=== PATIENT | female | born 1995 | race Caucasian/White ===

== ENCOUNTER 2018-09-18 15:20 | Emergency (ER) | payer MEDICAID ==
[~2018-09-18] VITALS: Ht 160 cm; Wt 63.5 kg
[2018-09-18 15:24] VITALS: Ht 160 cm; Wt 63.5 kg
[2018-09-18 16:08] LABS: BASOPHIL % 1.3 % (0-2); PLATELET COUNT 286 x10^3mcL (130-400); RED CELL DISTRIBUTION WIDTH 13.9 % (11.5-14.5)
[2018-09-18 16:14] LABS: CALCIUM 9.8 mg/dL (8.5-10.1); CARBON DIOXIDE 26.1 mmol/L (21-32); CHLORIDE SERUM 102 mmol/L (98-107); CREATININE SERUM 0.8 mg/dL (0.6-1.0); GFR1 > 60 mL/min; GLUCOSE SERUM 109 mg/dL (74-106); SODIUM SERUM 138 mmol/L (136-145)
[2018-09-18 16:18] LABS: ALBUMIN 4.2 g/dL (3.4-5.0); ALKALINE PHOSPHATASE 62 U/L (46-116); ALT/SGPT 23 U/L (14-59); AST/SGOT 6 U/L (15-37); BILIRUBIN TOTAL 0.63 mg/dL (0.20-1.00); LIPASE 97 IU/L (73-393)
[2018-09-18 16:20] LABS: TOTAL PROTEIN, SERUM 8.7 g/dL (6.4-8.2)
[2018-09-18 18:31] VITALS: BP 120/86
== END 2018-09-18 18:31 | disposition home or self-care (01) ==
LOC: ED 15:20
PROVIDERS: Emergency Medicine
DX: N23 Unspecified renal colic (principal)
CPT/HCPCS: 36415; J1885

== ENCOUNTER 2019-01-28 16:24 | Inpatient (IN) | payer SELFPAY ==
[~2019-01-28] VITALS: Ht 160 cm; Wt 61.2 kg
[2019-01-28 16:25] VITALS: Ht 160 cm; Wt 61.2 kg
--- NOTE | 2019-01-28 16:52 | NUR ---
PT PRESENTS TO ED WITH C/O ACUTE ABDOMINAL PAIN STARTING 5HRS CLINICIAN ONCOLOGY. PT STS PAIN IS SHARP AND CONSTANT. UPON ARRIVAL PT WAS DIAPHORETIC, PALE, AND TACHYPNEIC. PT REPORTS HAVING 2 EPISODES OF VOMITING CLINICIAN ONCOLOGY. PT STS PAIN IS IN MID LOWER QUADRANT AREA AND IN PELVIC AREA. PT STS PAIN ALSO RADIATES TO BACK. PT DENIES FEVER. PT PUT ON FULL CM, AAOX4, AND TACHYPNEIC DUE TO PAIN. PT MOTHER AT BEDSIDE. WILL CONTINUE TO MONITOR.
[2019-01-28 17:19] LABS: PLATELET COUNT 193 x10^3mcL (130-400); RED CELL DISTRIBUTION WIDTH 13.5 % (11.5-14.5)
[2019-01-28 17:20] LABS: BASOPHIL % 0 % (0-2)
[2019-01-28 17:33] LABS: CALCIUM 8.8 mg/dL (8.5-10.1); CARBON DIOXIDE 25.6 mmol/L (21-32); CREATININE SERUM 1.3 mg/dL (0.6-1.0); POTASSIUM SERUM 3.3 mmol/L (3.5-5.1)
[2019-01-28 17:37] LABS: ALBUMIN 3.9 g/dL (3.4-5.0); BILIRUBIN TOTAL 1.7 mg/dL (0.20-1.00); TOTAL PROTEIN, SERUM 7.7 g/dL (6.4-8.2)
--- NOTE | 2019-01-28 17:42 | NUR ---
PT STS PAIN HAS GONE FROM 02/05 TO 10/06. PT STS SHE IS STILL UNABLE TO GIVE URINE FOR SAMPLE. DR.BRACKEN RYDER.
--- NOTE | 2019-01-28 18:42 | NUR ---
PT REPORTS PAIN IS NOW 3/1O. PT TAKEN OFF FLOOR TO GET ULTRA SOUND.
--- NOTE | 2019-01-28 19:10 | NUR ---
REPORT GIVEN TO SMITH HENDRICKSON TO ASSUME CARE OF PT.
--- NOTE | 2019-01-28 20:34 | NUR ---
PT OFF FLOOR FOR CT SCAN.
--- NOTE | 2019-01-28 21:07 | NUR ---
PT RESTING IN A POSITION OF COMFORT, AOX4, RESP EVEN AND UNLABORED, NO ACUTE DISTRESS NOTED. PT FRIEND AT BEDSIDE.
--- NOTE | 2019-01-28 21:50 | NUR ---
DR NEGRETE AWARE OF PT BECOMING HYPOTENSIVE. AWARE THAT INITIAL LACTIC ACID WAS NOT ORDERED. WAITING FOR NEW ORDERS.
--- NOTE | 2019-01-28 22:05 | NUR ---
RECEIVED REPORT FROM EMEKA MTZ. PT MOVED TO ROOM 2A AT THIS TIME VIA [facility]. PT RESTING ON GURNEY IN NAD, BREATHING EVEN AND UNLABORED. PT A&0X4, SPEAKING FULL CLEAR SENTENCES. CM AND [address] FAMILY AT BEDSIDE. IV FLUIDS RUNNING AT ORDERED RATE. WILL CONTINUE TO MONITOR.
--- NOTE | 2019-01-28 22:05 | NUR ---
PT MOVED FROM ED BED 12 TO 2B FOR CLOSER MONITORING. PT REPORT GIVEN TO MIRTA MTZ TO ASSUME PT CARE.
--- NOTE | 2019-01-28 22:37 | NUR ---
SPOKE TO JOJO GLUE SPREADER, PER JOJO PT IS SCHEDULED BY SURGEON JESSICA FOR LAP APPENDECTOMY WITH POSSIBLE OPEN APPENDECTOMY AT 10 AM BUT WILL WAIT TO SEE PTS WHITE BLOOD COUNT IN AM. PER JOJO, MAKE SURE IF PT IS ENDORSED THAT ONCOMING RN IS AWARE.
--- NOTE | 2019-01-28 22:50 | NUR ---
CALLED SURGEON MD LOPEZ. PER MD HUMMEL TO SEND PT TO TELE FLOOR BEFORE STARTING ZOSYN ANTIBIOTIC. PER MD LOPEZ TELE NURSE TO START ANTIBIOTICS AFTER FLAGYL IS FINISHED INFUSING.
--- NOTE | 2019-01-28 23:37 | NUR ---
CALLED REPORT TO NATALIE MTZ
--- NOTE | 2019-01-28 23:40 | NUR ---
PT AMBULATED TO RESTROOM WITH STEADY GAIT ACCOMPANIED BY FAMILY.
--- NOTE | 2019-01-28 23:50 | NUR ---
Total fluid resuscitation amount ordered for patient is 4000 mls. At time of admission/transfer to TELEMETRY , 4000 mls have infused. Last BP was 92/53 and SMITH PEÑA is aware. PT TRANSFERED AT THIS TIME VIA [facility] BY MYSELF AND [facility] EMT. PT A&0X4, SPEAKING FULL CLEAR SENTENCES. BREATHING EVEN AND UNLABORED. FLAGYL ENDORSED TO CASEY MTZ. PT REMAINS NPO AT THIS TIME AND CASEY RN AWARE. PT VERBALIZED UNDERSTANDING OF PLAN OF CARE. TRANSPORT CM IN PLACE. PT AMBULATED FROM [facility] TO BED WITH NO ASSISTANCE. PT HAS ALL BELONGINGS UPON TRANSFER. OKAY PER MD TO TRANSFER PT TO TELE.
--- NOTE | 2019-01-28 23:50 | NUR ---
RECEIVED PT VIA [employer] FROM E/D, ACCOMANIED BY RN AND TRANSPORTER. A/A/O X 4, CALM, COOPERATIVE. AMBULATORY, NO GAIT OR BALANCE IMPAIRMENT NOTED WHEN WALKING FROM GURNEY TO BED. ON TELE # 13, HR 1120, ST, DENIES CHEST PAIN OR DISCOMFORT AT THIS TIME. SCD BY BEDSIDE. NO ACUTE RESPIRATORY DISTRESS NOTED. ABD SOFT, FLAT, TENDERNESS UPON PALPATION TO RLQ (C/O INTERMITTENT, SHARP ABD PAIN 2/10, EXACERBATED BY WALKING AND TWISTING, RELIEVED BY PAIN MEDICATIONS AND REST), LAST BM 01/27/19, FORMED. IV SITE RAC 20G, CDI. ORIENTED PT TO ROOM, BED CONTROLS, CALL LIGHT SYSTEM. SIDE RAILS UP X 2, BED IN LOW POSITION. WILL ENDORSE TO SMITH AWAN.
[2019-01-29 00:48] VITALS: BP 95/51
--- NOTE | 2019-01-29 02:19 | NUR ---
HANGED ZOSYN X1 DOSE ORDERED BY DR LOPEZ SURGEON FROM ER.
--- NOTE | 2019-01-29 03:48 | NUR ---
ASLEEP NO S/SX OF PAIN OR DISCOMFORTS NO DISTRESS, REMAINED NPO, IVF INFUSING WELL, VISUAL CHECKED AT INTERVALS.
[2019-01-29 05:38] VITALS: BP 97/54
--- NOTE | 2019-01-29 06:32 | NUR ---
DR MIRANDA INFORMED OF K+ LEVEL 3.3 AWAITING FOR ORDERS.
[2019-01-29 06:36] LABS: ALKALINE PHOSPHATASE 40 U/L (46-116); ALT/SGPT 36 U/L (14-59); AST/SGOT 30 U/L (15-37); CALCIUM 7.2 mg/dL (8.5-10.1); CHLORIDE SERUM 108 mmol/L (98-107); GFR1 > 60 mL/min; GLUCOSE SERUM 114 mg/dL (74-106); PLATELET COUNT 160 x10^3mcL (130-400); POTASSIUM SERUM 3.6 mmol/L (3.5-5.1); RED CELL DISTRIBUTION WIDTH 13.4 % (11.5-14.5); SODIUM SERUM 143 mmol/L (136-145)
[2019-01-29 06:44] LABS: ALBUMIN 2.7 g/dL (3.4-5.0); TOTAL PROTEIN, SERUM 5.8 g/dL (6.4-8.2)
--- NOTE | 2019-01-29 07:15 | NUR ---
SPOKE WITH DR. TORRE REGUARDING K+ OF 3.3 DR. TORRE SAID "IT'S OK DO NOT WANT TO REPLACE."
--- NOTE | 2019-01-29 07:30 | NUR ---
RECEIVED REPORT FROM YEAST SUPERVISOR NURSE PT LYING DOWN ASLEEP IN BED. PT AROUSABLE A&O X4, ON TELE MONITOR #13 FOR SYNUS TACHY AT TIMES ASYMPTOMATIC, RADIAL AND PEADAL PULSES STRONG BILAT, NO EDEMA NOTED, SCD AT BEDSIDE, LUNGS CTA BILAT, ON R/A 96%, ACTIVE BOWEL SOUNDS IN ALL FOUR QUADRANTS, PT AMBULATES STEADILY, SKIN CLEAN, DRY AND INTACT, PT COMPLAINING OF PAIN / OFFERED MEDICATION PT REFUSED STATING IT IS TOLERABLE, IV PATENT AND INTACT ON RAC 100ML NS NO REDDNESS OR PAIN NOTED. ALL QUESTIONS AND CONCERNS ADDRESSED. BED IN LOW POSITION, CALL LIGHT WITHIN REACH. OFFERED REPOSITIONING AND RELAXATION TECHNIQUE FOR PAIN. WILL CONTINUE TO MONITOR.
--- NOTE | 2019-01-29 08:30 | NUR ---
PT IN BATHROOM. STARTED ZOSYN PRESCRIBED. IV PATENT AND INTACT NO REDDNESS OR PAIN NOTED. NO ADVERSE REACTIONS NOTED. PT WIPED BODY WITH CHG WIPES, PT CALM AND COOPERATIVE ALL JEWELERY TAKEN OFF, TAPE PLACED ON NOSE RING.
[2019-01-29 08:52] VITALS: BP 103/63
--- NOTE | 2019-01-29 09:15 | NUR ---
SPOKE TO DR. LOPEZ ON PHONE REGUARDING PT LABS AND PAIN LEVEL. ALSO READ CT AND US RESULTS. WILL BE IN BY 1030 PT NOTIFIED.
[2019-01-29 09:25] LABS: BAND NEUTROPHIL 10 % (0-10); MONOCYTE 6 % (0-7); SEGMENTED NEUTROPHILS 83 % (37-75)
--- NOTE | 2019-01-29 09:30 | NUR ---
PT ESCORTED TO OR.
[2019-01-29 10:46] LABS: PLATELET MORPHOLOGY PLATELETS NORMAL; rbc morphology (normal/abnorm) NORMAL (NORMAL)
--- NOTE | 2019-01-29 12:43 | NUR ---
RECEIVED PT BACK FROM OR VITALS STABLE 93 HR, 105/86, 96% RA, 15R, VIJAY DRAIN 50ML IN OR TEMP98.6. PT LYING DOWN. DENIES ANY PAIN. REQUESTING WATER, WILL CONTACT
--- NOTE | 2019-01-29 13:42 | NUR ---
DR ASIF AT BEDSIDE AT THIS TIME REVIEWING POC. PATIENT VERBALIZES UNDERSTANDING. ALL QUESTIONS AND CONCERNS ADDRESSED. ALL NEEDS ATTENDED TO. WILL CONTINUE TO MONITOR
[2019-01-29 14:43] LABS: UA SPECIFIC GRAVITY <=1.005 (1.005-1.035); microscopic required? YES; urine erythrocyte 1+ (NEGATIVE)
[2019-01-29 14:55] LABS: AMPHETAMINE QUAL UR NONE DETECTED (See below)
--- NOTE | 2019-01-29 15:33 | NUR ---
Discount pharmacy card and list to low cost medical clinics given to patient by Elvi Morse.
[2019-01-29 16:40] VITALS: BP 107/63
--- NOTE | 2019-01-29 17:20 | NUR ---
EMPTIED VIJAY DRAIN 40ML OF DARK RED /YELLOW FLUID NO CLOTS, NO ODOR. PT LYING IN BED WITH FAMILY AT BEDSIDE. PT STATED SHE IS BURPING BUT NO BOWEL MOVEMENT, ENCOURAGED AMBULATION. DENIES ANY PAIN AT THIS TIME.
--- NOTE | 2019-01-29 18:57 | NUR ---
ENDORSED CARE TO SILVER CHASER NURSE. PT SITTING UP IN BED WITH FAMILY AT BEDSIDE. PT DENIES ANY PAIN AT THIS TIME. PT TOLERATING CLEAR LIQUIDS WELL. IV PATENT RUNNING NO REDNESS OR SWELLING NOTED. BED IN LOW POSITION CALL LIGHT WITHIN REACH. ALL NEEDS AND QUESTIONS MET AT THIS TIME.
--- NOTE | 2019-01-29 19:15 | NUR ---
CARE ASSUMED FROM OUTGOING RN. PT RESTING COMFORTABLY IN BED. NO ACUTE DISTRESS NOTED. EVEN AND UNLABORED RESPIRATIONS ON RA. ON TELE# [address] 110. IV PATENT AND INTACT RUNNING FLUIDS PER EMAR. NO C/O PAIN AT THIS TIME. ABLE TO AMBULATE TO BATHROOM WITHOUT PROBLEMS. HAS NOT PASS GAS OR HAD A BM. S/P LAP APPENDECTOMY, LAP SITES X3 COVERED WITH STERI STRIPS AND BANDAID CDI. VIJAY DRAIN PATENT. BED IN LOWEST POSITION. SIDE RAILS UPX2. CALL LIGHT WITHIN REACH. WILL CONTINUE TO MONITOR.
[2019-01-29 21:17] VITALS: BP 97/55
--- NOTE | 2019-01-30 00:16 | NUR ---
PT ASLEEP COMFORTABLY IN BED. NO ACUTE DISTRESS NOTED. EVEN AND UNLABORED RESPIRATIONS ON RA. ON TELE# 13 READING 91. IV PATENT AND INTACT RUNNING FLUIDS PER EMAR. BED IN LOWEST POSITION. SIDE RAILS UXP2. CALL LIGHT WITHIN REACH. WILL CONTINUE TO MONITOR.
--- NOTE | 2019-01-30 02:21 | NUR ---
PT C/O 5/10 ABD PAIN, MEDICATED PER EMAR. STATES HAVING A BM, WATERY STOOL. 20ML OF SEROSANGINOUS/PUS EMPTIED FROM VIJAY DRAIN, BULB PRESSURE REAPPLIED. WILL CONTINUE TO MONITOR AND REASSESS FOR PAIN
[2019-01-30 05:08] LABS: RAPID PLASMA REAGIN Non Reactive (Non Reactive)
[2019-01-30 05:28] VITALS: BP 97/51
--- NOTE | 2019-01-30 06:35 | NUR ---
PT SLEPT COMFORTABLY IN INTERVALS THROUGHOUT THE SHIFT. ALL NEEDS TENDED TO AND MET. ALL SCHEDULED MEDICATIONS GIVEN. C/O ABD PAIN MEDICATED PER EMAR. S/P LAP APPENDECTOMY, LAP SITES X3 BANDAID CDI, 25ML SEROSANGUINEOUS/PUS. PT HAD BOWEL MOVEMENT, STATES WATERY STOOL. IV PATENT AND INTACT RUNNING FLUIDS PER EMAR. BED IN LOWEST POSITION. SIDE RAILS UPX2. CALL LIGHT WITHIN REACH. WILL ENDORSE TO ONCOMING SHIFT.
[2019-01-30 07:15] LABS: CALCIUM 7.6 mg/dL (8.5-10.1); CARBON DIOXIDE 23.8 mmol/L (21-32); CHLORIDE SERUM 110 mmol/L (98-107); CREATININE SERUM 0.8 mg/dL (0.6-1.0); GFR1 > 60 mL/min; GLUCOSE SERUM 93 mg/dL (74-106); MAGNESIUM 1.5 mg/dL (1.8-2.4); PHOSPHOROUS 2.4 mg/dL (2.5-4.9); POTASSIUM SERUM 3.2 mmol/L (3.5-5.1); SODIUM SERUM 143 mmol/L (136-145)
[2019-01-30 07:22] LABS: PLATELET COUNT 165 x10^3mcL (130-400); RED CELL DISTRIBUTION WIDTH 13.9 % (11.5-14.5)
[2019-01-30 07:32] LABS: BASOPHIL % 0 % (0-2)
[2019-01-30 07:42] VITALS: BP 102/66
--- NOTE | 2019-01-30 07:43 | NUR ---
PATIENT IN BED, BED TO THE LOWEST POSITION. PATIENT ON ROOM AIR BREATHING ADEQUATELY WITH NO SIGNS OF RESPIRATORY DISTRESS. PATIENT IS A/O X4. PATIENT STATES NO PAIN AT THIS TIME. IV ACCESS NOTED TO RAC, N/S INFUSING AT 100 ML/HR. J/P DRAIN NOTED TO L SIDE WITH 3 INCISIONS, CLOSED WITH STERILE STRIP. PATIENT EDUCATED TO USE CALL LIGHT, WHEN NEEDING ASSISTANCE. PATIENT VERBALIZED UNDERSTANDING. WILL CONTINUE TO MONITOR.
[2019-01-30 07:45] VITALS: BP 102/66
[2019-01-30 11:54] VITALS: BP 101/54
--- NOTE | 2019-01-30 12:34 | NUR ---
PATIENT IN BED RESTING AT THIS TIME. PATIENT STATES NO PAIN. PATIENT ALSO FREE FROM ANY SIGNS OF DISTRESS. WILL CONTINUE TO MONITOR.
--- NOTE | 2019-01-30 14:18 | NUR ---
PATIENT IN BED RESTING AT THIS TIME. FREE FROM ANY DISTRESS. WILL CONTINUE TO MONITOR.
[2019-01-30 16:44] VITALS: BP 100/57
--- NOTE | 2019-01-30 18:44 | NUR ---
PATIENT IN BED RESTING COMFORTABLY AT THIS TIME. PATIENT STS NO PAIN. PATIENT FREE FROM ANY SIGNS OF DISTRESS.
--- NOTE | 2019-01-30 19:10 | NUR ---
RECEIVED PT FROM PREVIOUS SHIFT NURSE. PT AOX4, DENIES WEAVER/ DIZZINESS. ON TELE #13, READING SR HR 86. DENIES CP/PRESSURE. DENIES SOB/DIFFICULTY BREATHING, ON RA. VIJAY DRAIN TO L. QUADRANT. IV TO RAC, INTACT AND PATENT. BED IN LOWEST POSITION. CALL LIGHT WITHIN REACH. WILL CONTINUE TO MONITOR.
[2019-01-30 20:13] VITALS: BP 109/60
--- NOTE | 2019-01-31 03:30 | NUR ---
PT RESTING IN BED. RR EVEN AND UNLABORED. IN NO ACUTE DISTRESS. CALL LIGHT WITHIN REACH. BED IN LOWEST POSITION. WILL CONTINUE TO MONITOR.
[2019-01-31 05:27] VITALS: BP 111/74
--- NOTE | 2019-01-31 05:34 | NUR ---
5 ML OF SEROSANGUINOUS FLUID EMPTIED FROM VIJAY DRAIN.
[2019-01-31 06:45] LABS: BASOPHIL % 0.2 % (0-2); PLATELET COUNT 168 x10^3mcL (130-400)
[2019-01-31 07:28] LABS: CALCIUM 7.6 mg/dL (8.5-10.1); CARBON DIOXIDE 25.3 mmol/L (21-32); CHLORIDE SERUM 110 mmol/L (98-107); CREATININE SERUM 0.8 mg/dL (0.6-1.0); GFR1 > 60 mL/min; GLUCOSE SERUM 84 mg/dL (74-106); MAGNESIUM 1.5 mg/dL (1.8-2.4); PHOSPHOROUS 2.7 mg/dL (2.5-4.9); POTASSIUM SERUM 3.7 mmol/L (3.5-5.1); SODIUM SERUM 143 mmol/L (136-145)
[2019-01-31 07:50] VITALS: BP 106/67
--- NOTE | 2019-01-31 08:06 | NUR ---
OX4; NO SOB AT RM AIR; DENIES PAIN; GAUZE DSG AND 2 BANDAIDS NOTED ON THE ABD; CDI; NO ACTIVE BLEED; VIJAY TO SELF SUCTION SECURED AND PATENT; MINIMAL SEROSANGUINOUS OUTPUT NOTED ON THE BUILD. ABD IS SOFT, NONDISTENDED; BS+; PT REPORTS BM, PASSING GAS, AMBULATING AND TOLERATING SOLID FOOD. IVF NSS 100 ML/HR INFUSING VIA RAC. SITE PATENT AND WITHOUT INFILTRATION; ON TELE 13. NSG ASSESSMENT DONE; WILL CONTINUE TO MONITOR STATUS.
[2019-01-31 11:30] VITALS: BP 107/70
--- NOTE | 2019-01-31 13:37 | NUR ---
CONVERSING WITH 2 VISITORS; NO COMPLAINTS. AMBULATORY WITH STABLE GAIT
[2019-01-31 16:05] VITALS: BP 114/75
--- NOTE | 2019-01-31 18:22 | NUR ---
NO NEW ACUTE CHANGES IN STATUS; VIJAY OUTPUT IS 3 ML. ABD DSG REMAIN CDI. PT DENIES PAIN THAT REQUIRE PAIN MED THIS SHIFT AMBULATORY WITH STABLE GAIT.
--- NOTE | 2019-01-31 19:15 | NUR ---
RECEIVED PT FROM PREVIOUS SHIFT NURSE. PT AOX4, DENIES WEAVER/DIZZINESS. ON TELE #13, NSR HR 69. DENIES CP/PRESSURE. 3 SMALL INCISIONS ON ABD WITH BAND AIDS, VIJAY TO LUQ. IV TO RAC, INTACT AND PATENT. BED IN LOWEST POSITION. CALL LIGHT WITHIN REACH. WILL CONTINUE TO MONITOR.
[2019-01-31 19:23] VITALS: BP 115/73
--- NOTE | 2019-02-01 03:30 | NUR ---
PT RESTING IN BED. RR EVEN AND UNLABORED. IN NO ACUTE DISTRESS. CALL LIGHT WITHIN REACH. BED IN LOWEST POSITION. WILL CONTINUE TO MONITOR.
[2019-02-01 04:31] VITALS: BP 121/79
--- NOTE | 2019-02-01 05:55 | NUR ---
3 ML OF SEROUS FLUID EMPTIED FROM VIJAY DRAIN.
[2019-02-01 06:24] LABS: CARBON DIOXIDE 26.3 mmol/L (21-32); CHLORIDE SERUM 109 mmol/L (98-107); CREATININE SERUM 0.8 mg/dL (0.6-1.0); GFR1 > 60 mL/min; GLUCOSE SERUM 86 mg/dL (74-106); POTASSIUM SERUM 3.5 mmol/L (3.5-5.1); SODIUM SERUM 144 mmol/L (136-145)
[2019-02-01 06:32] LABS: BASOPHIL % 0.4 % (0-2); PLATELET COUNT 201 x10^3mcL (130-400); RED CELL DISTRIBUTION WIDTH 13.9 % (11.5-14.5)
--- NOTE | 2019-02-01 07:05 | NUR ---
RECEIVED PT FROM MARCELLE RN. PT AA/OX4 LAYING IN BED. NO S/S OF ACUTE DISTRESS. NO C/O OF PAIN AT THIS TIME. ABDOMINAL DRESSINGS CDI, VIJAY DRAIN TO BULB SUCTION W/ SCANT SEROSANGUINOUS DRAINAGE NOTED. NO N/V. NO CHEST PAIN. NO SOB ON ROOM AIR. NO FEVER, NO CHILLS. IV WNL TO RAC, IV FLUIDS FLOWING. SITE WNL, PATENT AND FLUSHING WELL. INSTRUCTED TO USE CALL LIGHT TO CALL FOR ASSISTANCE PRN. BED IN LOW POSITION. CALL LIGHT WITHIN REACH. WILL CONTINUE TO MONITOR.
[2019-02-01 07:55] VITALS: BP 125/72
[2019-02-01 11:46] VITALS: BP 100/66
--- NOTE | 2019-02-01 11:50 | NUR ---
PT AA/OX4. NO S/S OF ACUTE DISTRESS. NO C/O PAIN. VIJAY DRAIN TO BULB SUCTION WITH SCANT SEROSANGUINOUS DRAINAGE NOTED <5CC. DRESSINGS TO ABD. CDI. IV WNL, IV FLUIDS FLOWING. PT CALM/COOPERATIVE. NO CHEST PAIN. NO SOB ON ROOM AIR. NO FEVER, NO CHILLS. BED IN LOW POSITION. CALL LIGHT WITHIN REACH. WILL CONTINUE TO MONITOR.
--- NOTE | 2019-02-01 14:53 | NUR ---
VIJAY DRAIN REMOVED, <5 CC OUTPUT, SEROSANGUINUOUS. PRESSURE APPLIED TO SITE, NO BLEEDING NOTED. SUTURES/STAPLE X1 REMOVED. C/O MILD ABD. PAIN AT SITE OF VIJAY DRAIN, RATES 2/10, PO TYLENOL GIVEN. NO S/S OF ACUTE DISTRESS. NO SOB ON ROOM AIR. NO CHEST PAIN. NO FEVER. NO CHILLS. CALM/COOPERATIVE. BED IN LOW POSITION. CALL LIGHT WITHIN REACH. WILL CONTINUE TO MONITOR.
[2019-02-01 16:20] VITALS: BP 107/72
--- NOTE | 2019-02-01 18:30 | NUR ---
PT LAYING IN BED. AA/OX4. NO S/S OF ACUTE DISTRESS. NO ABD. PAIN. NO N/V. TOLERATING REGULAR DIET WELL. BANDAIDS TO ABD. INCISIONS CDI. DRESSING TO VIJAY DRAIN SITE CDI. IV WNL TO RAC, PATENT AND FLUSHES WELL. IV FLUIDS FLOWING. BED IN LOW POSITION. CALL LIGHT WITHIN REACH. WILL ENDORSE TO ONCOMING SHIFT.
--- NOTE | 2019-02-01 19:10 | NUR ---
RECEIVED PT FROM PREVIOUS SHIFT NURSE. PT AOX4, DENIES WEAVER/DIZZINESS. ON TELE #13, NSR. DENIES CP/PRESSURE. DENIES SOB/DIFFICULTY BREATHING, ON RA. 3 SMALL INCISIONS ON ABD, WITH BAND AIDS. VIJAY DRAIN REMOVED, PRESSURE DSG IN PLACE. IV TO RAC, INTACT AND PATENT. BED IN LOWEST POSITION. CALL LIGHT WITHIN REACH. WILL CONTINUE TO MONITOR.
[2019-02-01 20:12] VITALS: BP 113/70
--- NOTE | 2019-02-02 02:45 | NUR ---
PT RESTING IN BED. RR EVEN AND UNLABORED. IN NO ACUTE DISTRESS. CALL LIGHT WITHIN REACH. BED IN LOWEST POSITION. WILL CONTINUE TO MONITOR.
[2019-02-02 05:19] VITALS: BP 147/74
[2019-02-02 05:46] VITALS: BP 116/76
[2019-02-02 07:02] LABS: BASOPHIL % 0.6 % (0-2); PLATELET COUNT 253 x10^3mcL (130-400); RED CELL DISTRIBUTION WIDTH 13.3 % (11.5-14.5)
[2019-02-02 07:29] LABS: CALCIUM 8.5 mg/dL (8.5-10.1); CARBON DIOXIDE 23.5 mmol/L (21-32); CHLORIDE SERUM 107 mmol/L (98-107); CREATININE SERUM 0.7 mg/dL (0.6-1.0); GFR1 > 60 mL/min; GLUCOSE SERUM 92 mg/dL (74-106); MAGNESIUM 1.8 mg/dL (1.8-2.4); PHOSPHOROUS 4.1 mg/dL (2.5-4.9); POTASSIUM SERUM 3.6 mmol/L (3.5-5.1); SODIUM SERUM 141 mmol/L (136-145)
--- NOTE | 2019-02-02 08:27 | NUR ---
AT 0730 - RECEIVED PATIENT FROM NIGHT NURSE. AWAKE, ALERT AND ORIENTED. NO C/O PAIN AT THIS TIME. IV INFUSING NS AT 100ML/HR. AMBULATORY TO BATHROOM. ABDOMINAL DRESSING DRY AND INTACT. PATIENT TOLERATING PO FLUIDS AND REGULAR DIET.
[2019-02-02 08:34] VITALS: BP 107/71
--- NOTE | 2019-02-02 11:12 | NUR ---
SEEN BY MEDICAL TEAM DURING DOCTORS ROUNDS. PLAN TO DC HOME TODAY.
[2019-02-02 12:54] VITALS: BP 106/67
[2019-02-02] MEDS ORDERED: DOXYCYCLINE HY100 MG PO (13:25)
[2019-02-02] MEDS ORDERED: FLA500 PO (13:26)
[2019-02-02 14:15] VITALS: BP 106/67
[2019-02-02 14:20] VITALS: BP 106/67
--- NOTE | 2019-02-02 14:59 | NUR ---
AT 1400 - RECEIVED DISCHARGE ORDERS. PATIENT WANTS TO LEAVE SOON POSSIBLE. DOES NOT WANT TO TAKE IV FLAGYL BEFORE LEAVING. SHE WILL TAKE IT ORALLY ONCE PICKED UP FROM PHARMACY. DRESSINGS TO SURGICAL INCISIONS CHNAGED. 2 INCISIONS WITH MICHELLE LOOK CLEAN ADN DRY. FORMER DRAIN SITE IS ALSO CLEAN AND DRY. PHOTO DOCUMENTED AND PATIENT INSTRUCTED IN CARE OF INCISIONS AND SIGNS AND SYMPTOMS OF INFECTION. AT 1415 - IV CATHETER REMOVED INTACT. PATIENT TAKEN OFF CARDIAC MONITORING AND PREPARED FOR DISCHARGE. AT 1450 - PRINTED DISCHARGE INSTRUCTIONS GIVEN AND EXPLAINED TO PATIENT. PRESCRIPTION HAS BEEN SENT ELECTRONICALLY TO PATIENT'S PHARMACY. AT 1457 - DISCHARGED HOME ALONE. PATIENT WILL DRIVE SELF HOME. TAKEN TO DISCHARGE OFFICE IN WHEELCHAIR BY STUDENT NURSE.
== END 2019-02-02 14:59 | disposition home or self-care (01) | DRG 343 ==
LOC: ED 16:24 → DU 22:49
PROVIDERS: Emergency Medicine; Family Medicine Addiction Medicine; ADMIT Internal Medicine
PROC: 0J9C3ZZ Drainage of Pelvic Region Subcutaneous Tissue and Fascia, Percutaneous Approach (ICD-10-PCS; 2019-01-29)
PROC: 0DTJ4ZZ Resection of Appendix, Percutaneous Endoscopic Approach (ICD-10-PCS; principal; 2019-01-29 10:00)
DX: K35.80 Unspecified acute appendicitis (principal); N73.8 Other specified female pelvic inflammatory diseases; B96.20 Unspecified Escherichia coli [E. coli] as the cause of diseases classified elsewhere
CPT/HCPCS: 87491; 87591; 90746; G0378; J0330; J0690; J0692; J0696; J2001; J2175; J2250; J2270; J2405; J2543; J2704; J2710; J3010; J3490; J7030; J7060; J7120; Q0092; Q9967